=== PATIENT | female | born 1970 ===

== ENCOUNTER 2024-07-24 09:27 | Outpatient (AMB) | payer OTHER, SELFPAY ==
--- NOTE | 2024-07-24 09:39 | A.OFFVIS_ITS ---
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 Denies any recent or past trauma, injury or falls. She also endorses chronic mid and lower back pain. She has been followed at [facility] for several years and has completed physical therapy, gel knee injections and steroid injections for back pain with partial relief. Patient has tried gabapentin without any pain relief. She is currently taking amitriptyline and fluoxetine. Spine MRI imaging are noted below. Pain affects her daily activities and functioning, mobility, mood, sleep, social interactions and quality of life. Pain is most severe in the morning and evening, rated at 8/10 with activities and 6/10 at rest. Patient is presently receives counseling for chronic pain and depression at [facility]. Denies any fever or chills, infection, cough, weakness, bladder or bowel dysfunction or saddle anesthesia. Location: Widespread body pain, mid and lower back pain Duration: Chronic pain since 2012 Characteristics of symptom or complaint: Aching, tightness, stiff, burning, stabbing, sore, heavy, tiring Aggravating or associated factors: Cold weather changes, movements, walking, ADLs, work Relieving factors: Heat, amitryprline, fluoxetine, tried gabapentin in the past Treatment: PT, back steroid injections, gel knee injections [facility] Medical History Headache GERD (gastroesophageal reflux disease) Migraine Asthma Hyperlipidemia Anxiety Chronic pain of left knee Surgical History H/O: hysterectomy Social History Tobacco use type: Cigarette Cigarette Packs Per Day: 1 Review of Systems Const All systems reviewed & are unremarkable except as noted in HPI and below Physical Exam Vital Signs: Last Vital Signs Pulse 93 07/24/24 09:43 BP 132/81 07/24/24 09:43 Pulse Ox 97 07/24/24 09:43 Oxygen Delivery Method Room Air 07/24/24 09:43 BMI result Body Mass Index 43.2 General: Appears afebrile. Alert and oriented. Mood and affect appropriate. Follows and participates in conversation appropriately. Respiratory effort is unlabored. No cough. No nasal discharge. Able to transition from sit to stand unassisted. Ambulates with bilaterally normal heel strike and toe off. General: Yes no CVA tenderness Back/Spine/Pelvis Other: Limited lumbar ROM due to pain and body habitus. Lumbar extension reproduces moderate pain. Flexion is intact and reproduces mild pain. Painful facet loading bilaterally. Multiple widespread TTPs 16/16 bilaterally, including upper and lower extremities. Back: no CVA tenderness Cervical Spine: cervical ROM normal, cervical muscular tenderness, pain with cervical ROM, No Cervical spine scars present, cervical spasm, No Cervical spine tenderness and No step off deformity Thoracic/Lumbar Spine: thoracic and lumbar spine normal to inspection, No Thoracic/lumbar spine scar(s), Lasegue's sign negative, straight leg raise negative bilaterally, pain with thoraco-lumbar ROM, paraspinal muscle tenderness, thoraco-lumbar ROM limited, No thoracic spinal tenderness and No lumbar spinal tenderness Pelvis: buttock tenderness bilaterally Sacroiliac joints: bilaterally (+Cruz's +Stinchfield, +Pelvic compression) tender to palpation Extrem General: Yes capillary refill normal, Yes no clubbing, cyanosis or edema and Yes no calf tenderness Results Reviewed Results Reviewed: Assessment & Plan Assessment & Plan (1) Fibromyalgia: Code(s): M79.7 - Fibromyalgia Category: Medical (2) Morbid obesity with BMI of 40.0-44.9, adult: Code(s): E66.01 - Morbid (severe) obesity due to excess calories; Z68.41 - Body mass index [BMI] 40.0-44.9, adult Category: Medical (3) Chronic pain syndrome: Code(s): G89.4 - Chronic pain syndrome Category: Medical (4) Chronic low back pain: Code(s): M54.50 - Low back pain, unspecified; G89.29 - Other chronic pain Category: Medical (5) Sacroiliac joint pain: Code(s): M53.3 - Sacrococcygeal disorders, not elsewhere classified Category: Medical (6) Lumbar spondylosis: Code(s): M47.816 - Spondylosis without myelopathy or radiculopathy, lumbar region Category: Medical Plan Discussed management of fibromyalgia with patient. Educated patient that fibromyalgia is a noninflammatory, non-autoimmune and central afferent processing disorder leading to a diffuse and widespread musculoskeletal pain syndrome. Discussed importance of CBT for sleep and pain which patient can discuss with her current psychotherapist at [facility] or consider CBT [employer] [facility]ara on the phone. I encouraged patient to try to remain physically active, loose weight, adequate daily hydration and well balanced diet, consider joining a gym, home light exercises, swimming, aquatherapy, acupuncture, and aerobic exercise which are the overall most effective treatments.? Renee Martin., Albina Foote., Sadi Ocasio., Srinivas Christensen, Mavis Loomis, & ?Renee Packer (2017). Effectiveness of Therapeutic Exercise in Fibromyalgia Syndrome: A Systematic Review and Vincent-Analysis of Randomized Clinical Trials. [employer], 2017, [id number]. [email or web address] Medical release request sent to [facility] for previous treatments and injections. Briefly discussed interventional treatments for chronic low back pain, including diagnostic versus therapeutic injections, neuromodulation with Sprint PNS trial, and RFA procedures. Informational pamphlets were provided to patient. Will review [facility] record prior to procedures discussion. Script provided for tizanidine. Side effects and precautions were discussed with patient. Patient is also provided with BP machine script to monitor her BP and hold tizanidine if BP is less than 110/70. All questions and concerns have been answered and patient agreed with the treatment plan. Follow-up for medication review and sooner as needed. Medications: New 2 blood pressure kit-extra large As directed 1 ea 0RF blood pressure monitoring while on medication E66.01 - Morbid (severe) obesity due to excess calories, G89.4 - Chronic pain syndrome, Z68.41 - Body mass index [BMI] 40.0-44.9, adult tizanidine 2 mg PO TID 30 days PRN 90 tabs 0RF muscle spasticity M79.7 - Fibromyalgia Coding Level of Care Code New Pt Level 4 (62129) Complex EM visit Add On G2211 Diagnoses Fibromyalgia M79.7 Morbid obesity with BMI of 40.0-44.9, adult E66.01; Z68.41 Chronic pain syndrome G89.4 Chronic low back pain M54.50; G89.29 Sacroiliac joint pain M53.3 Lumbar spondylosis M47.816
[2024-07-24 09:43] VITALS: BP 132/81; PULSE 93; O2SAT 97; BMI 43.2
== END 2024-07-24 10:26 | disposition home or self-care (01) ==
PROVIDERS: PCP Family Medicine; Referring Provider Family Medicine; Visit Provider Nurse Practitioner Family
DX: M79.7 Fibromyalgia (principal); E66.01 Morbid (severe) obesity due to excess calories; Z68.41 Body mass index [BMI] 40.0-44.9, adult; G89.4 Chronic pain syndrome; M54.50 Low back pain, unspecified; G89.29 Other chronic pain; M53.3 Sacrococcygeal disorders, not elsewhere classified; M47.816 Spondylosis without myelopathy or radiculopathy, lumbar region
CPT/HCPCS: 99204

== ENCOUNTER → 2024-07-24 09:27 | Outpatient (BNVA) | payer OTHER, SELFPAY | PROVIDERS: PCP Family Medicine; Referring Provider Family Medicine; Visit Provider Nurse Practitioner Family ==

== ENCOUNTER 2024-08-21 10:40 | Outpatient (AMB) | payer OTHER, SELFPAY ==
--- NOTE | 2024-08-21 10:51 | MHC.OFFVIS ---
Vital Signs 08/21/24 10:55 Height 5 ft Weight 219 lb BMI 42.8 BP 136/72 Blood Pressure Location Rt brachial Position Sitting Pulse 80 Pulse Source Pulse Oximeter Intake Visit Reasons: 1 Month Follow Up Intake Note: Pain today 01/08 Switchboard Clerk Required: No Accompanied by: Self / Same As Patient Allergies No Known Allergies Allergy (Verified 08/21/24 10:56) HPI Comments Details: Patient presents today for follow up for mid and lower back pain. We received old records from [facility] office, which were reviewed and scanned into patient's chart. She completed PT at [facility] without improvement. Patient reports widespread body pain and axial low back pain worse than mid back pain. She reports minimal relief with tizanidine without any side effects. Patient is interested to proceed with diagnostic lumbar medial branch blocks for potential RFA or Sprint PNS trial. She continues to work on weight optimization and has lost 3 lbs since last visit. Denies any recent cough, cold, infection, fever or any significant changes in medical history since last office visit. Denies any changes to medications, medical history or recent hospitalizations. PRIOR: Patient is a 54 years old female with prior history of chronic pain of left knee, migraine headaches, fatigue, chronic back pain, exercises induced asthma and morbid obesity, presents today for treatment of widespread pain due to fibromyalgia. Denies any recent or past trauma, injury or falls. She also endorses chronic mid and lower back pain. She has been followed at [facility] for several years and has completed physical therapy, gel knee injections and steroid injections for back pain with partial relief. Patient has tried gabapentin without any pain relief. She is currently taking amitriptyline and fluoxetine. Spine MRI imaging are noted below. Pain affects her daily activities and functioning, mobility, mood, sleep, social interactions and quality of life. Pain is most severe in the morning and evening, rated at 8/10 with activities and 6/10 at rest. Patient is presently receives counseling for chronic pain and depression at [facility]. Denies any fever or chills, infection, cough, weakness, bladder or bowel dysfunction or saddle anesthesia. Location: Widespread body pain, mid and lower back pain Duration: Chronic pain since 2012 Characteristics of symptom or complaint: Aching, tightness, stiff, burning, stabbing, sore, heavy, tiring Aggravating or associated factors: Cold weather changes, movements, walking, ADLs, work Relieving factors: Heat, amitryprline, fluoxetine, tried gabapentin in the past Treatment: PT, back steroid injections, gel knee injections [facility] Medical History Headache GERD (gastroesophageal reflux disease) Migraine Asthma Hyperlipidemia Anxiety Chronic pain of left knee Surgical History H/O: hysterectomy Social History Tobacco use type: Cigarette Cigarette Packs Per Day: 1 Review of Systems Const All systems reviewed & are unremarkable except as noted in HPI and below Physical Exam General: Appears afebrile. No acute distress. Alert and oriented. Mood and affect appropriate. Follows and participates in conversation appropriately. Respiratory effort is unlabored. No cough. Able to transition from sit to stand unassisted. Ambulates with bilaterally normal heel strike and toe off. General: Yes no CVA tenderness Back/Spine/Pelvis Other: Limited lumbar ROM due to pain. Lumbar extension reproduces moderate pain. Flexion is intact and reproduces mild pain. Painful facet loading bilaterally. Multiple widespread TTPs 16/16 bilaterally, including upper and lower extremities. Back: no CVA tenderness Cervical Spine: cervical ROM normal, cervical muscular tenderness, pain with cervical ROM, No Cervical spine scars present and No Cervical spine tenderness Thoracic/Lumbar Spine: thoracic and lumbar spine normal to inspection, No Thoracic/lumbar spine scar(s), Lasegue's sign negative, straight leg raise negative bilaterally, pain with thoraco-lumbar ROM, paraspinal muscle tenderness, thoraco-lumbar ROM limited, No thoracic spinal tenderness and lumbar spinal tenderness at L4 and at L5 Pelvis: buttock tenderness bilaterally Sacroiliac joints: bilaterally (+Cruz's +Stinchfield, +Pelvic compression) tender to palpation Extrem General: Yes capillary refill normal, Yes no clubbing, cyanosis or edema and Yes no calf tenderness Results Reviewed Results Reviewed: Assessment & Plan Assessment & Plan (1) Fibromyalgia: Code(s): M79.7 - Fibromyalgia Category: Medical (2) Morbid obesity with BMI of 40.0-44.9, adult: Code(s): E66.01 - Morbid (severe) obesity due to excess calories; Z68.41 - Body mass index [BMI] 40.0-44.9, adult Category: Medical (3) Chronic low back pain: Code(s): M54.50 - Low back pain, unspecified; G89.29 - Other chronic pain Category: Medical (4) Sacroiliac joint pain: Code(s): M53.3 - Sacrococcygeal disorders, not elsewhere classified Category: Medical (5) Lumbar spondylosis: Code(s): M47.816 - Spondylosis without myelopathy or radiculopathy, lumbar region Category: Medical Plan Discussed interventional treatments for chronic low back pain, including diagnostic versus therapeutic injections, neuromodulation with Sprint PNS trial, and RFA procedures. Informational pamphlets were provided to patient. [facility] old record was reviewed and scanned into patient's chart. Schedule diagnostic bilateral L3-L4 DR L5 medial branch blocks with local and fluoroscopy. If she has significant relief from the diagnostic blocks for his axial low back pain, will consider either therapeutic injections, Sprint PNS or RFA depending on her preference. 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 Continue tizanidine as needed. Monitor for any side effects. Precautions were reviewed with patient. All questions and concerns have been answered and patient agreed with the treatment plan. Follow-up after injections and sooner as needed. Coding Level of Care Code Est Pt Level 4 (70993) Complex EM visit Add On G2211 Diagnoses Fibromyalgia M79.7 Morbid obesity with BMI of 40.0-44.9, adult E66.01; Z68.41 Chronic low back pain M54.50; G89.29 Sacroiliac joint pain M53.3 Lumbar spondylosis M47.816
[2024-08-21 10:55] VITALS: BP 136/72; PULSE 80; BMI 42.8
--- OUTSIDE RECORDS SUMMARY | 2024-08-21 12:06 | XMS_ITS | Clinical Summary ---
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 Active fluticasone HFA (FLOVENT HFA) 44 MCG/ACT inhaler INHALE 2 PUFFS BY MOUTH TWICE DAILY DIRECTED. RINSE MOUTH AFTER USE 09/10/2021 Active topiramate (TOPAMAX) 100 MG tablet Take 200 mg by mouth 1 (one) time each day in the evening Active LORazepam (ATIVAN) 0.5 MG tablet TAKE 1/2 TO 1 TABLET BY MOUTH EVERY 12 HOURS NEEDED 02/05/2022 Active Active Problems Problem Noted Date Diagnosed Date Hyperchloremia 03/19/2022 Back pain 03/19/2022 Acute low back pain 08/14/2019 Pure hypercholesterolemia 05/26/2018 Overview (04/07/2022): Last Assessment & Plan: Repeat fasting lipid panel prior to next appointment. Continue atorvastatin at current dose. Immunizations Name Administration Dates Next Due Influenza, Unspecified 04/26/2019 Tdap 05/30/2015 Family History Medical History Relation Comments Heart attack Brother COPD Father Diabetes Father Thyroid nodules Father Asthma Mother Relation Status Comments Brother Father Mother Social History Tobacco Use Types Packs/Day Years Used Date Smoking Tobacco: Never Assessed Tobacco Cessation:Counseling Given: Not Answered Comments Unknown Sex and Gender Information Value Date Recorded Sex Assigned at Not on file Legal Sex Female 2:44 PM EDT Gender Identity Female 04/02/2022 8:45 AM EDT Sexual Orientation Not on file Plan of Treatment Health Maintenance Due Date Last Done Comments Breast Cancer Screening 1972 Hepatitis B Vaccine (1 of 3 - 19+ 3-dose series) 1991 Colorectal Cancer Screening: Annual FOBT 2021 Colorectal Cancer Screening: Colonoscopy 2021 Colorectal Cancer Screening: Sigmoidoscopy 2021 Influenza Vaccine (#1) 2024 04/26/2019 Pneumococcal Vaccine: Pediat rics (0 to 5 Years) and At-Risk Patients (6 to 64 Years) Aged Out No longer eligi ble based on patient's age to complete this topic [place] [address] [place] [address] Care Teams Construction Or Leak Gang Laborer Relationship Specialty Start Date End Date Marisabel Nascimento MD [address] [place] [id number] PCP - General Family Medicine 03/01/22
== END 2024-08-21 11:11 | disposition home or self-care (01) ==
PROVIDERS: PCP Family Medicine; Visit Provider Nurse Practitioner Family
DX: M79.7 Fibromyalgia (principal); E66.01 Morbid (severe) obesity due to excess calories; Z68.41 Body mass index [BMI] 40.0-44.9, adult; M54.50 Low back pain, unspecified; G89.29 Other chronic pain; M53.3 Sacrococcygeal disorders, not elsewhere classified; M47.816 Spondylosis without myelopathy or radiculopathy, lumbar region
CPT/HCPCS: 99214

== ENCOUNTER 2024-09-27 06:27 | Outpatient (REF) | payer OTHER, SELFPAY ==
--- NOTE | ~2024-09-27 | FL_ITS ---
EXAMINATION: FL GUIDANCE ONLY HISTORY: M47.816 - Spondylosis without myelopathy or radiculopathy, lumbar region COMPARISON: None available. TECHNIQUE: Fluoroscopy time: 0.2 minutes. Cumulative Dose: 3.43 mGy. DAP: 0.0353 mGym2 Images: 2. FINDINGS: Images demonstrate needles and contrast material in the regions of the bilateral L3-4, L4-5, and L5-S1 facet joints. FL/FL guidance in treatment room IMPRESSION: Fluoroscopy during procedure. Please see procedure report for additional information. Electronically signed by: Everton Quiroz MD 09/27/2024 11:21 AM MEGHNA
== END 2024-09-27 06:28 | disposition home or self-care (01) ==
LOC: CF 06:27
PROVIDERS: Visit Provider Internal Medicine
DX: M47.816 Spondylosis without myelopathy or radiculopathy, lumbar region (principal)
CPT/HCPCS: 64493; 64494; J2003; J2795; Q9967

== ENCOUNTER 2024-09-27 09:01 | Outpatient (AMB) | payer OTHER, SELFPAY ==
[2024-09-27 09:12] VITALS: BP 139/84; PULSE 99; O2SAT 97; BMI 42.8
--- NOTE | 2024-09-27 09:12 | A.OFFVIS_ITS ---
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 Denies any recent cough, cold, infection, fever or other significant changes in medical history since last office visit. [facility] Medical History Headache GERD (gastroesophageal reflux disease) Migraine Asthma Hyperlipidemia Anxiety Chronic pain of left knee Surgical History H/O: hysterectomy Social History Tobacco use type: Cigarette Cigarette Packs Per Day: 1 Physical Exam Vital Signs: Last Vital Signs Pulse 99 09/27/24 09:12 BP 139/84 09/27/24 09:12 Pulse Ox 97 09/27/24 09:12 Oxygen Delivery Method Room Air 09/27/24 09:12 BMI result Body Mass Index 42.8 Office Procedures Lumbar/Sacral Facet Inj Details: Lumbar Medial Branch Block, Bilateral L3, L4 medial branches and L5 Dorsal Ramus (2 levels, 3 nerves) After obtaining written consent, pre-procedure blood pressure and pulse were recorded and are in the nursing record for review. The patient was placed in a prone position. The respective lumbosacral area was prepped with chloraprep and draped in sterile fashion. The skin over the target medial branch nerves was anesthetized with 0.5% lidocaine. A 22 gauge 3.5 inch needle was inserted into the target medial branch nerve under fluoroscopic guidance. No paresthesias were elicited with needle placement and aspiration was negative for blood and CSF. Next, 0.2cc of omnipaque 180 was injected to verify positioning. Next 0.5 ml 0.5% ropivicaine was injected (0.5cc total per level). The identical procedure was performed at the remaining levels. The skin was cleansed and a sterile bandage was applied. Following the procedure the patient's vital signs were stable. The patient tolerated the procedure well and no complications were encountered. Following the procedure the patient's vital signs were stable. The patient was discharged home in good condition with post-procedural instructions. Time Out: Immediately prior to the procedure, the following was verbally con firmed that there is a signed consent form and that the correct patient, planned procedure, site and side are consistent with documentation and that necessary equipment and/or blood products are available prior to the start of the case. Complications: none EBL: <5 cc 74824 - with Fluoroscopy 88296 - second level, with Fluoroscopy Procedure code (CPT) selection complete Assessment & Plan Assessment & Plan (1) Lumbar spondylosis: Code(s): M47.816 - Spondylosis without myelopathy or radiculopathy, lumbar region Category: Medical Plan Patient is status post bilateral diagnostic L3, L4 medial branches and L5 dorsal ramus blocks. Patient tolerated procedure well and was discharged home in stable condition with discharge instructions. All questions were answered. We will follow-up via telephone or in clinic to assess response to therapy. A follow-up appointment was made during today's visit. Orders: Orders FL guidance in treatment room Today M47.816 - Spondylosis without myelopathy or radiculopathy, lumbar region Medications: New lorazepam (Ativan) Take 30 minutes prior to arrival to procedure 1 mg PO ONCE 1 tab 0RF anxiety Coding Level of Care Code Procedure Only Diagnoses Lumbar spondylosis M47.816 CPT Codes Facet Injection-Lumbar/Sacral - CPT: 60354 - with Fluoroscopy ([id number]) Facet Injection-Lumbar/Sacral - CPT: 41093 - second level, with Fluoroscopy ([id number])
--- OUTSIDE RECORDS SUMMARY | 2024-09-27 09:46 | XMS_ITS | Clinical Summary ---
Author Organization [facility], Address [address] [facility] [address] [place] [address] Phone Care Team Providers Care Svp Marketing Name Role Phone Marisabel Nascimento MD Primary [...] patient's age to complete this topic [place] [address] [id number] Care Teams Svp Marketing Relationship Specialty Start Date End Date Marisabel Nascimento MD [address] [place] [phone] PCP - General Family Medicine 03/01/22
== END 2024-09-27 09:43 | disposition home or self-care (01) ==
LOC: HO.PMCPRC 09:01
PROVIDERS: PCP Family Medicine; Visit Provider Internal Medicine
DX: M47.816 Spondylosis without myelopathy or radiculopathy, lumbar region (principal)
CPT/HCPCS: 64493; 64494

== ENCOUNTER 2024-10-04 08:56 | Outpatient (AMB) | payer OTHER, SELFPAY ==
--- NOTE | 2024-10-04 08:57 | MHC.OFFVIS ---
Vital Signs 10/04/24 09:02 Height 5 ft Weight 224 lb BMI 43.7 BP 139/75 Blood Pressure Location Rt brachial Position Sitting Pulse 74 Pulse Source Pulse Oximeter Pulse Oximetry (%) 97 Oxygen Delivery Method Room Air Intake Visit Reasons: s/p MBB Intake Note: Pain today 02/07 Clerical Support Specialist Required: No Accompanied by: Self / Same As Patient Allergies No Known Allergies Allergy (Verified 10/04/24 09:02) HPI Comments Details: Patient presents today to assess response to bilateral diagnostic L3-L4 DR L5 MBB on 09/27/[address] Hernandez. Patient reports 0 % pain relief since procedure is no improvement in her daily activities, functioning, mobility or sleep. She continues to endorse significant lower back pain which extends to her buttocks, lateral hips and intermittently to anterior thighs. Denies bladder or bowel dysfunction, weakness or saddle anesthesia. Prolonged sitting, walking, movements increase her pain. She reports increased back pain more with flexion than extension today. She also has significant bilateral SI joint pain with positive provocative testing. Denies any recent cough, cold, infection, fever or any significant changes in medical history since last office visit. Past Procedures: 09/27/24: Bilateral Diagnostic L3-L4 DR L5 MBB-0% pain relief PRIOR: Patient presents today for follow up for mid and lower back pain. We received old records from [facility] office, which were reviewed and scanned into patient's chart. She completed PT at [facility] without improvement. Patient reports widespread body pain and axial low back pain worse than mid back pain. She reports minimal relief with tizanidine without any side effects. Patient is interested to proceed with diagnostic lumbar medial branch blocks for potential RFA or Sprint PNS trial. She continues to work on weight optimization and has lost 3 lbs since last visit. Denies any recent cough, cold, infection, fever or any significant changes in medical history since last office visit. Denies any changes to medications, medical history or recent hospitalizations. PRIOR: Patient is a 54 years old female with prior history of chronic pain of left knee, migraine headaches, fatigue, chronic back pain, exercises induced asthma and morbid obesity, presents today for treatment of widespread pain due to fibromyalgia. Denies any recent or past trauma, injury or falls. She also endorses chronic mid and lower back pain. She has been followed at [facility] for several years and has completed physical therapy, gel knee injections and steroid injections for back pain with partial relief. Patient has tried gabapentin without any pain relief. She is currently taking amitriptyline and fluoxetine. Spine MRI imaging are noted below. Pain affects her daily activities and functioning, mobility, mood, sleep, social interactions and quality of life. Pain is most severe in the morning and evening, rated at 8/10 with activities and 6/10 at rest. Patient is presently receives counseling for chronic pain and depression at [facility]. Denies any fever or chills, infection, cough, weakness, bladder or bowel dysfunction or saddle anesthesia. Location: Widespread body pain, mid and lower back pain Duration: Chronic pain since 2012 Characteristics of symptom or complaint: Aching, tightness, stiff, burning, stabbing, sore, heavy, tiring Aggravating or associated factors: Cold weather changes, movements, walking, ADLs, work Relieving factors: Heat, amitryprline, fluoxetine, tried gabapentin in the past Treatment: PT, back steroid injections, gel knee injections PFSH Medical History Headache GERD (gastroesophageal reflux disease) Migraine Asthma Hyperlipidemia Anxiety Chronic pain of left knee Surgical History H/O: hysterectomy Social History Tobacco use type: Cigarette Cigarette Packs Per Day: 1 Review of Systems Const All systems reviewed & are unremarkable except as noted in HPI and below Physical Exam Vital Signs: Last Vital Signs Pulse 74 10/04/24 09:02 BP 139/75 10/04/24 09:02 Pulse Ox 97 10/04/24 09:02 Oxygen Delivery Method Room Air 10/04/24 09:02 BMI result Body Mass Index 43.7 General: Appears afebrile. No acute distress. Alert and oriented. Mood and affect appropriate. Follows and participates in conversation appropriately. Respiratory effort is unlabored. No cough. Able to transition from sit to stand unassisted. Ambulates with bilaterally normal heel strike and toe off. General: Yes no CVA tenderness Back/Spine/Pelvis Other: Limited lumbar ROM due to pain and body habitus. Lumbar extension reproduces mild pain and flexion reproduces moderate pain. Painful facet loading bilaterally. Multiple widespread TTPs 16/16 bilaterally, including upper and lower extremities. Back: no CVA tenderness Cervical Spine: cervical ROM normal, cervical muscular tenderness, pain with cervical ROM, No Cervical spine scars present and No Cervical spine tenderness Thoracic/Lumbar Spine: thoracic and lumbar spine normal to inspection, No Thoracic/lumbar spine scar(s), Lasegue's sign negative, straight leg raise negative bilaterally, pain with thoraco-lumbar ROM, paraspinal muscle tenderness, thoraco-lumbar ROM limited, No thoracic spinal tenderness and lumbar spinal tenderness at L4 and at L5 Pelvis: buttock tenderness bilaterally Sacroiliac joints: bilaterally (+Cruz's +Stinchfield, +Pelvic compression) tender to palpation Extrem General: Yes capillary refill normal, Yes no clubbing, cyanosis or edema and Yes no calf tenderness Results Reviewed Results Reviewed: Assessment & Plan Assessment & Plan (1) Fibromyalgia: Code(s): M79.7 - Fibromyalgia Category: Medical (2) Morbid obesity with BMI of 40.0-44.9, adult: Code(s): E66.01 - Morbid (severe) obesity due to excess calories; Z68.41 - Body mass index [BMI] 40.0-44.9, adult Category: Medical (3) Chronic low back pain: Code(s): M54.50 - Low back pain, unspecified; G89.29 - Other chronic pain Category: Medical (4) Sacroiliac joint pain: Code(s): M53.3 - Sacrococcygeal disorders, not elsewhere classified Category: Medical (5) Lumbar spondylosis: Code(s): M47.816 - Spondylosis without myelopathy or radiculopathy, lumbar region Category: Medical Plan Patient is 1 week status post diagnostic bilateral lumbar medial branch blocks with no pain relief. We will proceed with diagnostic bilateral sacroiliac joint injections with local and fluoroscopy and oral Ativan. Expectations, risks and benefits were reviewed. Patient is aware she will be contacted to schedule this procedure. Previously discussed interventional treatments for chronic low back and SIJ pain, including diagnostic versus therapeutic injections, neuromodulation with Sprint PNS trial, and RFA procedures. Continue daily physical activity, adequate hydration, good posture, weight loss, avoid pro inflammatory and processed foods. Consider CBT therapy for sleep, fibromyalgia and pain improvement, may look into the [employer] Service Team Member free lazara. All questions and concerns have been answered and patient agreed with the treatment plan. Follow-up after injections and sooner as needed. Coding Level of Care Code Est Pt Level 3 (30990) Complex EM visit Add On G2211 Diagnoses Fibromyalgia M79.7 Morbid obesity with BMI of 40.0-44.9, adult E66.01; Z68.41 Chronic low back pain M54.50; G89.29 Sacroiliac joint pain M53.3 Lumbar spondylosis M47.816
[2024-10-04 09:02] VITALS: BP 139/75; PULSE 74; O2SAT 97; BMI 43.7
--- OUTSIDE RECORDS SUMMARY | 2024-10-04 09:46 | XMS_ITS | Clinical Summary ---
Author Organization [facility], Address [address] [facility] [address] [place] [address] Phone Care Team Providers Care Validation Consultant Name Role Phone Marisabel Nascimento MD Primary [...] patient's age to complete this topic [place] [address] [place] [address] Care Teams Validation Consultant Relationship Specialty Start Date End Date Marisabel Nascimento MD [address] [place] [id number] PCP - General Family Medicine 03/01/22
== END 2024-10-04 09:14 | disposition home or self-care (01) ==
PROVIDERS: PCP Family Medicine; Visit Provider Nurse Practitioner Family
DX: M79.7 Fibromyalgia (principal); E66.01 Morbid (severe) obesity due to excess calories; Z68.41 Body mass index [BMI] 40.0-44.9, adult; M54.50 Low back pain, unspecified; G89.29 Other chronic pain; M53.3 Sacrococcygeal disorders, not elsewhere classified; M47.816 Spondylosis without myelopathy or radiculopathy, lumbar region
CPT/HCPCS: 99213

== ENCOUNTER → 2024-10-04 08:56 | Outpatient (BNVA) | payer OTHER, SELFPAY | PROVIDERS: PCP Family Medicine; Visit Provider Nurse Practitioner Family ==

== ENCOUNTER 2024-11-07 19:20 | Outpatient (REF) | payer OTHER, SELFPAY ==
--- NOTE | ~2024-11-07 | MR_ITS ---
CLINICAL HISTORY: WEAKNESS B L LEGS MR lumbar spine without gadolinium Comparison: None Findings: No scoliosis or spondylolisthesis. No acute fracture or pathologic bone lesion. Cauda equina and conus medullaris within normal limits. No significant degenerative change. No stenoses. Paraspinous musculature intact. IMPRESSION: No acute findings. This document has been electronically signed by: Femi Garibay MD on 11/07/2024 21:07:13
--- OUTSIDE RECORDS SUMMARY | 2024-11-07 19:24 | XMS_ITS | Clinical Summary ---
Author Organization [facility], Address [address] [facility] [address] [place] [address] Phone Care Team Providers Care Non Destructive Testing Specialist Name Role Phone Marisabel Nascimento MD Primary [...] Colorectal Cancer Screening: Sigmoidoscopy 2021 Influenza Vaccine (Season Ended) 2025 04/26/20 19 Pneumococcal Vaccine: Pediat rics (0 to 5 Years) and At-Risk Patients (6 to 64 Years) Aged Out No longer eligi ble based on patient's age to complete this topic [place] [address] [place] [address] Care Teams Non Destructive Testing Specialist Relationship Specialty Start Date End Date Marisabel Nascimento MD [address] [place] [id number] PCP - General Family Medicine 03/01/22
== END 2024-11-07 19:21 | disposition home or self-care (01) ==
LOC: HO.MRI 19:20
PROVIDERS: PCP Family Medicine; Visit Provider Family Medicine
DX: M85.80 Other specified disorders of bone density and structure, unspecified site (principal); M62.81 Muscle weakness (generalized)
CPT/HCPCS: 72148

== ENCOUNTER → 2024-11-07 19:33 | Outpatient (BNV) | payer OTHER, SELFPAY | PROVIDERS: PCP Family Medicine; Visit Provider Radiology Diagnostic Radiology | DX: R53.1 Weakness (principal) | CPT/HCPCS: 72148 ==

== ENCOUNTER 2024-11-27 06:33 | Outpatient (REF) | payer OTHER, SELFPAY ==
--- NOTE | ~2024-11-27 | FL_ITS ---
EXAMINATION: FL GUIDANCE ONLY HISTORY: M53.3 - Sacrococcygeal disorders, not elsewhere classified COMPARISON: None available. TECHNIQUE: Fluoroscopy time: 0.2 minutes. Cumulative Dose: 4.33 mGy. DAP: 0.0752 mGym2 Images: 2. FINDINGS: Images demonstrate needles in the regions of the bilateral sacroiliac joints. FL/FL guidance in treatment room IMPRESSION: Fluoroscopy during procedure. Please see procedure report for additional information. Electronically signed by: Everton Quiroz MD 11/28/2024 03:52 PM EDT
--- OUTSIDE RECORDS SUMMARY | 2024-11-27 06:37 | XMS_ITS | Clinical Summary ---
Author Organization [facility], Address [address] [facility] [address] [place] [address] Phone Care Team Providers Care Firearms Model Maker Name Role Phone Marisabel Nascimento MD Primary [...] appointment. Continue atorvastatin at current dose. Immunizations Immunization Administration Dates Next Due Influenza, Unspecified 04/26/2019 [...] (1 of 3 - 19+ 3-dose series) 03/11 Colorectal Cancer Screening: Annual FOBT 2021 Colorectal Cancer Screening: Colonoscopy 2021 Colorectal Cancer Screening: Sigmoidoscopy 2021 Pneumococcal Vaccine: 50+ Years (1 of 1 - PCV) 022 Influenza Vaccine (Season Ended) 2025 04/26/[address] [place] [address] Care Teams Firearms Model Maker Relationship Specialty Start Date End Date Marisabel Nascimento MD [address] [place] [id number] PCP - General Family Medicine 03/01/22
== END 2024-11-27 06:34 | disposition home or self-care (01) ==
LOC: CF 06:33
PROVIDERS: Visit Provider Anesthesiology
DX: M53.3 Sacrococcygeal disorders, not elsewhere classified (principal)
CPT/HCPCS: 27096; J2003; J2795; Q9967

== ENCOUNTER 2024-11-27 13:50 | Outpatient (AMB) | payer OTHER, SELFPAY ==
--- NOTE | 2024-11-27 14:03 | A.OFFVIS_ITS ---
Vital Signs 11/27/24 14:04 11/27/24 14:15 BP 120/72 110/68 Blood Pressure Location Lt brachial Lt brachial Position Sitting Sitting Respiration 16 16 Pulse 76 89 Pulse Source Pulse Oximeter Pulse Oximeter Pulse Oximetry (%) 97 95 Oxygen Delivery Method Room Air Room Air Intake Visit Reasons: BILATERAL DX SIJ INJECTION/ATIVAN REQ [employer] Required: No Allergies No Known Allergies Allergy (Verified 11/27/24 14:04) Medication List - Last Reconciled 11/27/24 by Sada Blair LPN amitriptyline 75 mg PO BEDTIME atogepant (Qulipta) 60 mg PO DAILY atorvastatin 40 mg PO DAILY blood pressure kit-extra large As directed fluoxetine 40 mg PO QAM lorazepam (Ativan) 1 mg PO ONCE omeprazole 40 mg PO BID tizanidine 2 mg PO TID PRN 30 days PFSH Medical History Headache GERD (gastroesophageal reflux disease) Migraine Asthma Hyperlipidemia Anxiety Chronic pain of left knee Surgical History H/O: hysterectomy Social History Tobacco use type: Cigarette Cigarette Packs Per Day: 1 Physical Exam Vital Signs: Last Vital Signs Pulse 89 11/27/24 14:15 Resp 16 11/27/24 14:15 BP 110/68 11/27/24 14:15 Pulse Ox 95 11/27/24 14:15 Oxygen Delivery Method Room Air 11/27/24 14:15 Assessment & Plan Assessment & Plan (1) Sacroiliac joint pain: Code(s): M53.3 - Sacrococcygeal disorders, not elsewhere classified Category: Medical (2) Chronic low back pain: Code(s): M54.50 - Low back pain, unspecified; G89.29 - Other chronic pain Category: Medical Plan Bilateral diagnostic sacroiliac joint injection Informed consent was explained thoroughly to the patient.? All questions about benefits and risks for the procedure were answered. Patient came to the operating room she was positioned prone on the operating table with the pillow under her abdomen.? Time-out was performed delineating correct site and side of the procedure name and date of of the patient. Her lower back and buttocks was prepped with ChloraPrep prepped and draped with sterile towels.C-arm was brought over the operating field and sq picture of patient's pelvis was demonstrated on the screen.? For each joint tilting C-arm contralateral to the site of the joint of the patient the most posterior portion of the joints were superimposed of the anterior portion of the joint . Skin was injected in the projection of the joint slightly medial to the location of the joint with 25 gauge 1/2 inch needle using local lidocaine 2% mixed with ropivacaine 0.5% 1 After that 22 gauge 5 inch needle was driven to each joint in tunnel vision fashion.? When needle entered the joint capsule injection of the contrast was performed demonstrating intra-articular and minimally periarticular spread of the contrast.? After that of bupivacaine 0.5% 5 mL was injected into each joint.? Upon completion of the injections the needles were removed and pressure were applied.? Sterile dressing was applied. Orders: Orders FL guidance in treatment room Today M53.3 - Sacrococcygeal disorders, not elsewhere classified Medications: New lorazepam (Ativan) Take 30 minutes prior to arrival to procedure 1 mg PO ONCE 1 tab 0RF anxiety Coding Level of Care Code Procedure Only Diagnoses Sacroiliac joint pain M53.3 Chronic low back pain M54.50; G89.29
[2024-11-27 14:04] VITALS: BP 120/72; PULSE 76; RESP 16; O2SAT 97
[2024-11-27 14:15] VITALS: BP 110/68; PULSE 89; RESP 16; O2SAT 95
--- OUTSIDE RECORDS SUMMARY | 2024-11-27 16:00 | XMS_ITS | Clinical Summary ---
Author Organization [facility], Address [address] [facility] [address] [place] [address] Phone Care Team Providers Care Housekeeper Home Name Role Phone Marisabel Nascimneto MD Primary Care Provide r Allergies No [...] Vaccine (Season Ended) 2025 04/26/[address] [place] [address] Care Teams Housekeeper Home Relationship Specialty Start Date End Date Marisabel Nascimento MD [address] [place] [id number] PCP - General Family Medicine 03/01/22
== END 2024-11-27 14:15 | disposition home or self-care (01) ==
LOC: HO.PMCPRC 13:50
PROVIDERS: PCP Family Medicine; Visit Provider Anesthesiology
DX: M53.3 Sacrococcygeal disorders, not elsewhere classified (principal); G89.29 Other chronic pain
CPT/HCPCS: 27096

== ENCOUNTER 2024-12-07 09:23 | Outpatient (AMB) | payer OTHER, SELFPAY ==
[2024-12-07 09:28] VITALS: BP 125/76; PULSE 74; O2SAT 96; BMI 42.2
--- NOTE | 2024-12-07 09:28 | A.OFFVIS_ITS ---
Vital Signs 3 12/07/24 09:28 Height 5 ft Weight 216 lb 4 oz BMI 42.2 BP 125/76 Blood Pressure Location Rt brachial Position Sitting Pulse 74 Pulse Source Pulse Oximeter Pulse Oximetry (%) 96 Oxygen Delivery Method Room Air Intake Visit Reasons: BILATERAL DIAGNOSTIC SIJ INJECTIONS Intake Note: Pain today 910 Cutter Barrel Drum Required: No Accompanied by: Self / Same As Patient Allergies No Known Allergies Allergy (Verified 12/07/24 09:28) HPI Comments Details: Patient presents today to assess response to bilateral diagnostic SI joint injections on 11/27/[address] Tyler. Patient reports 10% pain relief for 4 hours, minimal, temporary relief with no improvement in her daily activities, functioning, mobility or sleep. She continues to endorse significant lower back pain which extends to her buttocks and to right anterior thigh. Previously, diagnostic medial branch blocks in September also failed to alleviate her symptoms. Over the course of treatment, pain levels have remained high, typically rated at 8/10. She recently completed lumbar spine MRI ordered by her PCP which was normal. Denies bladder or bowel dysfunction, weakness or saddle anesthesia. The patient has a history of attempted physical therapies, restricted by insurance limitations, restricting further sessions until later in the year. - Onset & Timing: Persistent and chronic, exacerbated post-injection. - Quality & Character: Severe, rates 8/10, constant aching, diffuse, radiating, numbness and tingling, sore, dull - Location: Lower back with involvement of sacroiliac joints, radiation to lateral hips and right anterior thigh. Widespread body pain. - Exacerbating Factors: Any prolonged activity and bending. - Relieving Factors: None reported effective; prior conservative treatments ineffective. - Impact: Significantly impaired daily function and mobility. - Affect: Persistent high pain levels impacting daily life and activity. - Analgesia: Previous injections, physical therapy, and current medications (Fluoxetine, Amitriptyline, Gabapentin) with inadequate relief. Pain level remains at 8/10. - Adverse Effects: Report of muscle relaxants (Tizanidine) being ineffective. - Activities of Daily Living: Severely restricted; unable to perform physical activities comfortably. - Aberrant Drug-related Behaviors: None reported. Past Procedures: 11/27/24: Bilateral Diagnostic SIJ injections-10% pain relief for 4 hours 09/27/24: Bilateral Diagnostic L3-L4 DR L5 MBB-0% pain relief PRIOR: Patient presents today for follow up for mid and lower back pain. We received old records from [facility] office, which were reviewed and scanned into patient's chart. She completed PT at [facility] without improvement. Patient reports widespread body pain and axial low back pain worse than mid back pain. She reports minimal relief with tizanidine without any side effects. Patient is interested to proceed with diagnostic lumbar medial branch blocks for potential RFA or Sprint PNS trial. She continues to work on weight optimization and has lost 3 lbs since last visit. Denies any recent cough, cold, infection, fever or any significant changes in medical history since last office visit. Denies any changes to medications, medical history or recent hospitalizations. PRIOR: Patient is a 54 years old female with prior history of chronic pain of left knee, migraine headaches, fatigue, chronic back pain, exercises induced asthma and morbid obesity, presents today for treatment of widespread pain due to fibromyalgia. Denies any recent or past trauma, injury or falls. She also endorses chronic mid and lower back pain. She has been followed at [facility] for several years and has completed physical therapy, gel knee injections and steroid injections for back pain with partial relief. Patient has tried gabapentin without any pain relief. She is currently taking amitriptyline and fluoxetine. Spine MRI imaging are noted below. Pain affects her daily activities and functioning, mobility, mood, sleep, social interactions and quality of life. Pain is most severe in the morning and evening, rated at 8/10 with activities and 6/10 at rest. Patient is presently receives counseling for chronic pain and depression at [facility]. Denies any fever or chills, infection, cough, weakness, bladder or bowel dysfunction or saddle anesthesia. Location: Widespread body pain, mid and lower back pain Duration: Chronic pain since 2012 Characteristics of symptom or complaint: Aching, tightness, stiff, burning, stabbing, sore, heavy, tiring Aggravating or associated factors: Cold weather changes, movements, walking, ADLs, work Relieving factors: Heat, amitryprline, fluoxetine, tried gabapentin in the past Treatment: PT, back steroid injections, gel knee injections [facility] Medical History Headache GERD (gastroesophageal reflux disease) Migraine Asthma Hyperlipidemia Anxiety Chronic pain of left knee Surgical History H/O: hysterectomy Social History Tobacco use type: Cigarette Cigarette Packs Per Day: 1 Review of Systems Const All systems reviewed & are unremarkable except as noted in HPI and below Physical Exam Vital Signs: Last Vital Signs Pulse 74 12/07/24 09:28 BP 125/76 12/07/24 09:28 Pulse Ox 96 12/07/24 09:28 Oxygen Delivery Method Room Air 12/07/24 09:28 BMI result Body Mass Index 42.2 General: Appears afebrile. Alert and oriented. Mood and affect appropriate. Follows and participates in conversation appropriately. Respiratory effort is unlabored. No cough. Able to transition from sit to stand unassisted. Ambulates with bilaterally normal heel strike and toe off. General: Yes no CVA tenderness Back/Spine/Pelvis Other: Limited lumbar ROM due to pain. Normal gait, non-antalgic. Lumbar extension reproduces mild-moderate pain and flexion reproduces moderate pain. Positive facet loading bilaterally. Multiple widespread TTPs 16/16 bilaterally, including torso, upper and lower extremities. Back: no CVA tenderness Cervical Spine: cervical ROM normal, cervical muscular tenderness, pain with cervical ROM, No Cervical spine scars present and No Cervical spine tenderness Thoracic/Lumbar Spine: thoracic and lumbar spine normal to inspection, No Thoracic/lumbar spine scar(s), Lasegue's sign negative, straight leg raise negative bilaterally, pain with thoraco-lumbar ROM, paraspinal muscle tenderness, thoraco-lumbar ROM limited, No thoracic spinal tenderness and lumbar spinal tenderness at L4 and at L5 Pelvis: buttock tenderness bilaterally Sacroiliac joints: bilaterally (+Cruz's +Stinchfield, +Pelvic compression) tender to palpation Extrem General: Yes capillary refill normal, Yes no clubbing, cyanosis or edema and Yes no calf tenderness Results Reviewed Results Reviewed: MR lumbar spine without gadolinium 11/07/24 Comparison: None Findings: No scoliosis or spondylolisthesis. No acute fracture or pathologic bone lesion. Cauda equina and conus medullaris within normal limits. No significant degenerative change. No stenoses. Paraspinous musculature intact. IMPRESSION: No acute findings. Assessment & Plan Assessment & Plan (1) Fibromyalgia: Code(s): M79.7 - Fibromyalgia Category: Medical (2) Morbid obesity with BMI of 40.0-44.9, adult: Code(s): E66.01 - Morbid (severe) obesity due to excess calories; Z68.41 - Body mass index [BMI] 40.0-44.9, adult Category: Medical (3) Chronic low back pain: Code(s): M54.50 - Low back pain, unspecified; G89.29 - Other chronic pain Category: Medical (4) Sacroiliac joint pain: Code(s): M53.3 - Sacrococcygeal disorders, not elsewhere classified Category: Medical (5) Lumbar spondylosis: Code(s): M47.816 - Spondylosis without myelopathy or radiculopathy, lumbar region Category: Medical (6) Chronic pain syndrome: Code(s): G89.4 - Chronic pain syndrome Category: Medical Plan Patient is 1 week status post diagnostic bilateral SIJ injections with no pain relief. Previously, diagnostic medial branch blocks in September also failed to alleviate her symptoms. She recently completed repeat lumbar spine MRI which showed no central or neuroforaminal stenoses and no significant degenerative changes and does not explain patient's ongoing symptoms for lower back pain. The current management of the patient's chronic lower back pain and fibromyalgia includes considering non-pharmacological interventions such as aqua therapy, gym, chiropractic massage and acupuncture, though patient insurance limitations may impact availability. Therapeutic physical activity, weight loss and lifestyle modifications have been advocated to potentially aid in pain reduction. Ongoing monitoring of the pain's response to these approaches will guide future clinical decisions. Adjustments in pharmacotherapeutic regimens may be explored based on patient response. Consider CBT [employer] lazara for fibromyalgia support. All questions and concerns have been answered and patient agreed with the plan. Follow up as needed. Patient was informed and verbally consented to the use of an ambient scribe for clinic note documentation during this visit. Medications: Discontinued 2 lorazepam (Ativan) Take 30 minutes prior to arrival to procedure Discontinued Reason: Patient Completed Course 1 mg PO ONCE 1 tab 0RF anxiety Coding Level of Care Code Est Pt Level 4 (77175) Complex EM visit Add On G2211 Diagnoses Fibromyalgia M79.7 Morbid obesity with BMI of 40.0-44.9, adult E66.01; Z68.41 Chronic low back pain M54.50; G89.29 Sacroiliac joint pain M53.3 Lumbar spondylosis M47.816 Chronic pain syndrome G89.4
--- OUTSIDE RECORDS SUMMARY | 2024-12-07 09:40 | XMS_ITS | Clinical Summary ---
Author Organization [facility], Address [address] [place] [address] Phone Care Team Providers Care Hospital Recruiter Name Role Phone Marisabel Nascimento MD Primary [...] Vaccine (Season Ended) 2025 04/26/[address] [place] [address] Care Teams Hospital Recruiter Relationship Specialty Start Date End Date Marisabel Nascimento MD [address] [place] [id number] PCP - General Family Medicine 03/01/22
== END 2024-12-07 09:45 | disposition home or self-care (01) ==
LOC: HO.PMC 09:23
PROVIDERS: PCP Family Medicine; Visit Provider Nurse Practitioner Family
DX: M79.7 Fibromyalgia (principal); E66.01 Morbid (severe) obesity due to excess calories; Z68.41 Body mass index [BMI] 40.0-44.9, adult; M54.50 Low back pain, unspecified; G89.29 Other chronic pain; M53.3 Sacrococcygeal disorders, not elsewhere classified; M47.816 Spondylosis without myelopathy or radiculopathy, lumbar region; G89.4 Chronic pain syndrome
CPT/HCPCS: 99214